=== PATIENT | female | born 2005 ===

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

== ENCOUNTER 2024-06-02 21:54 | Emergency (ER) | payer OTHER ==
[~2024-06-02] VITALS: Ht 160 cm; Wt 61.2 kg
[2024-06-02 23:01] LABS: BASOPHILS ABSOLUTE AUTO 0.03 K/mm3 (0.00-0.23); BASOPHILS PERCENT AUTO 0 % (0-2); EOSINOPHILS ABSOLUTE AUTO 0.09 K/mm3 (0.00-0.68); EOSINOPHILS PERCENT AUTO 1 % (0-6); Hematocrit 41.2 % (33.0-51.0); Hemoglobin 13.8 g/dL (11.5-16.0); IMMATURE GRAN ABSOLUTE AUTO 0.01 K/mm3 (0.00-0.10); IMMATURE GRAN PERCENT AUTO 0 % (0-1); LYMPHOCYTES ABSOLUTE AUTO 2.26 K/mm3 (0.84-5.20); LYMPHOCYTES PERCENT AUTO 26 % (21-46); MONOCYTES PERCENT AUTO 10 % (4-13); Mean Corpuscular HGB 29.9 pg (26.0-34.0); Mean Corpuscular HGB Conc 33.5 g/dL (31.5-36.5); Mean Corpuscular Volume 89 fL (80-100); Mean Platelet Volume 9.8 fL (9.1-12.4); NEUTROPHILS ABSOLUTE AUTO 5.41 K/mm3 (1.96-9.15); NEUTROPHILS PERCENT AUTO 62 % (41-73); Platelet Count 295 K/mm3 (150-400); RDW Coefficient Variation 12.5 % (11.7-14.2); RDW Standard Deviation 40.4 fL (35.1-46.3); Red Blood Cell Count 4.62 M/mm3 (3.80-5.20)
[2024-06-02 23:26] LABS: Albumin, Blood 3.8 g/dL (3.4-5.0); Bilirubin, Total 0.2 mg/dL (0.1-1.0); Bun/Creatinine Ratio 11.2 (12.0-20.0); Calcium, Blood 9.2 mg/dL (8.5-10.1); Creatinine, Blood 0.63 mg/dL (0.40-1.00); Globulin, Blood 3.7 g/dL (2.2-4.0); Potassium, Blood 3.3 mmol/L (3.5-5.5); Total Protein, Blood 7.5 g/dL (6.4-8.2)
[2024-06-03 00:57] LABS: Source, Urine Clean Catch
[2024-06-03 01:01] LABS: Bilirubin, Urine Neg (Neg); Blood, Urine Neg (Neg); Glucose Qualitative, Urine Neg (Neg); Ketones, Urine Neg (Neg); Leukocyte Esterase, Urine 1+ (Neg); Nitrite, Urine Neg (Neg); Protein, Urine Neg (Neg); Specific Gravity, Urine 1.015 (1.003-1.022); Urobilinogen, Urine NORM (Normal)
[2024-06-03 01:07] LABS: Appearance, Urine Clear (Clear); Color, Urine Yellow (P-Yellow)
[2024-06-03 01:08] LABS: Bacteria Few /hpf; Red Blood Cells, Urine Not Seen /hpf (0-2); Squamous Epithelial Cells Few /hpf (Few); White Blood Cells, Urine 0-2 /hpf (0-5)
[2024-06-03 02:37] VITALS: BP 111/72
== END 2024-06-03 04:36 | disposition home or self-care (01) ==
LOC: ER 21:54
PROVIDERS: Student in an Organized Health Care Education/Training Program
DX: R10.11 Right upper quadrant pain (principal); K21.9 Gastro-esophageal reflux disease without esophagitis
CPT/HCPCS: 76705; 80053; 81001; 84703; 85025; 99284-25

== ENCOUNTER → 2024-12-03 | Outpatient (CLI) | payer OTHER | LOC: LAB SHORT 14:23 → LAB 14:23 | DX: R30.0 Dysuria (principal) | CPT/HCPCS: 87077; 87086; 87186 ==